=== PATIENT | female | born 2000 | race Caucasian/White ===

== ENCOUNTER → 2018-09-24 | Outpatient (CLI) | payer BC ==
--- NOTE | 2018-09-24 15:17 | XR ---
EXAMINATION TYPE: XR abdomen 2V DATE OF EXAM: 09/24/2018 CLINICAL DATA: 18 year-old female low abdominal pain, [facility] COMPARISON: None FINDINGS: Lung bases are clear. No evidence for free intraperitoneal air. No dilated small bowel or air-fluid levels. Scattered air and stool seen throughout the colon extendi ng distally into the rectum. Moderate stool in the pelvis. No suspicious calcifications identified. IMPRESSION: No evidence of bowel obstruction or free intraperitoneal air.
== END | disposition home or self-care (01) ==
LOC: RADXRYALE 12:20
PROVIDERS: ATTEND Physician Assistant Medical
DX: R10.30 Lower abdominal pain, unspecified (principal)
CPT/HCPCS: 74019